=== PATIENT | male | born 1995 | race Caucasian/White ===

== ENCOUNTER → 2023-06-27 10:21 | Outpatient (BNVA) | payer OTHER, SELFPAY | PROVIDERS: Visit Provider Physician Assistant Medical | DX: S93.492A Sprain of other ligament of left ankle, initial encounter (principal); W01.0XXA Fall on same level from slipping, tripping and stumbling without subsequent striking against object, initial encounter | CPT/HCPCS: 99202 ==

== ENCOUNTER → 2023-07-11 10:35 | Outpatient (BNVA) | payer OTHER, SELFPAY | PROVIDERS: Visit Provider Physician Assistant Medical | DX: S93.492A Sprain of other ligament of left ankle, initial encounter (principal); W01.0XXA Fall on same level from slipping, tripping and stumbling without subsequent striking against object, initial encounter | CPT/HCPCS: 99213 ==

== ENCOUNTER → 2023-07-25 11:44 | Outpatient (BNVA) | payer OTHER, SELFPAY | PROVIDERS: Visit Provider Physician Assistant Medical | DX: S93.492D Sprain of other ligament of left ankle, subsequent encounter (principal); W01.0XXD Fall on same level from slipping, tripping and stumbling without subsequent striking against object, subsequent encounter | CPT/HCPCS: 99213 ==

== ENCOUNTER 2023-08-05 08:00 | Outpatient (RCR) | payer OTHER, BC, SELFPAY ==
--- NOTE | 2023-08-02 12:59 | MHC.PT.EP ---
[facility] [place] Office [place] Office [place] Office [address] [phone] F: [phone] F: [phone] F: [phone] F: [phone] Physical Therapy Plan of Care Date of Evaluation: 08/02/23 Date of Surgery: NA Diagnosis: L ankle sprain Assessment: Yves is a 28 year old male who is referred to PT for L ankle sprain . He sustained the sprain about 5 weeks back at work. He twisted his ankle while making a sudden quick turn. He continued to work after the injury however his pain got worse. He went to 2 days after where he was given an aircast for 1 week followed by GAYE wrap. On PT examination he presents with 6/10 pain in L ankle with standing, walking and moving ankle, no TTP, decreased ankle ROM, decreased ankle strength, altered posture, balance and gait. He lives with family. He is independent with ADLS but takes frequent rest breaks as needed, is currently on light duty. He would benefit from skilled PT to address the aforementioned impairments and improve tolerance to functional activities. Frequency and Duration: The patient will be seen 2/week for 5 weeks Short Term Goals: 1. Pt will have 50% decrease in pain which will enable him to stand and walk without GAYE wrap in 2 weeks. 2. Pt will have ankle ROM WNL which will enable him to negotiate stairs without pain in 3 weeks. Fpc Goals: 1. Pt will demonstrate an increase in muscle strength by 1 grade which will enable him to perform all ADLS without rest breaks and pain in 5 weeks. 2. Pt will be independent with HEP and return to PLOF and full duty at work in 5 weeks. Treatment Plan: Modalities to reduce pain, spasms and effusion. Manual therapy to restore motion and function. Therapeutic exercise to improve strength and flexibility. Neuromuscular re-education for posture and balance. Therapeutic activities to return to functional activities of daily living. Electronically signed by: Atiya Seaman PT DPT Please sign and return to therapist. Thank you for your referral.
--- NOTE | 2023-09-16 14:14 | MHC.PT.DC ---
[facility] [place] Office [place] Office [place] Office [address] [phone] F: [phone] F: [phone] F: [phone] F: [phone] Physical Therapy Discharge Report Diagnosis: L ankle sprain Date of Surgery: NA Date of Evaluation: 08/02/23 Date of Discharge: 09/16/23 Treatments to Date: 2 Cancellations to Date: 0 No Shows to Date: Discharge Status: Physician Discontinued Tx Discharge Summary: Yves attended only 2 PT visits and was put on hold by WC. He has not returned to PT in 6 weeks. He is therefore being d/c from PT. Electronically signed by: Atiya Seaman PT DPT Please sign and return to therapist. Thank you for your referral.
== END 2023-09-16 14:14 | disposition home or self-care (01) ==
LOC: HO.PT 08:00
PROVIDERS: PCP Physician Assistant; Visit Provider Physician Assistant Medical
DX: S93.402D Sprain of unspecified ligament of left ankle, subsequent encounter (principal)
CPT/HCPCS: 97110; 97112; 97161

== ENCOUNTER → 2023-08-08 10:34 | Outpatient (BNVA) | payer OTHER, SELFPAY | PROVIDERS: PCP Physician Assistant; Visit Provider Physician Assistant Medical | DX: S93.492D Sprain of other ligament of left ankle, subsequent encounter (principal); W01.0XXD Fall on same level from slipping, tripping and stumbling without subsequent striking against object, subsequent encounter | CPT/HCPCS: 99213 ==

== ENCOUNTER 2023-08-22 14:03 | Outpatient (AMB) | payer OTHER, SELFPAY ==
--- NOTE | 2023-08-22 14:06 | A.OFFVIS_ITS ---
Intake Vital Signs 08/22/23 14:07 Height 5 ft 8 in Weight 218 lb BMI 33.1 Intake Visit Reasons: FC- High Grade Ankle sprain Intake Note: Yves 28 yr old male presents today for his W/C injury for his left ankle sprain from June 25, 2023, while getting off a ladder, he hyper extended his ankle inward causing immediate pain. Seen at work connection, where xrays were taken, states he was told he gas a sprain. He was placed in a air cast and referred to orthopaedic. Currently states he cont's to have swelling, numbness and tingling with prolong standing. He rested his ankle/foot for the last 5 days with very little improvement. Limited ROM in ankle and shooting pain all around ankle. Allergies albuterol Allergy (Intermediate, Verified 08/22/23 14:14) thoat swells surgical tape Allergy (Mild, Uncoded 08/22/23 14:14) hives HPI FC- High Grade Ankle sprain HPI Details 28-year-old male who [facility] of left ankle injury s/p getting off a ladder when he hyperextended his ankle inwards, 06/25/23. He was seen at work connection where x-rays were performed, he was placed in a air cast, and referred to our office. He states he has shooting pain, limited ROM, swelling, numbness and tingling in his ankle with prolonged standing. He had undergone physical therapy which aggravated his pain. He has been resting his ankle for the last 5 days which provided him minimal relief. 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 Mild discomfort along the lateral aspect of the ankle, no deformity along the Achilles tendon, negative Menon?s. No pain along the syndesmosis or anterior tibia. No laxity, NVI. Results Reviewed Results Reviewed: left ankle xrays obtained in the ED on 06/27/23 are negative for acute fracture or dislocation. ankle mortise intact. Assessment & Plan Assessment & Plan (1) Left ankle sprain: Code(s): S93.402A - Sprain of unspecified ligament of left ankle, initial encounter Qualifiers: Encounter type: initial encounter Involved ligament of ankle: anterior talofibular ligament Qualified Code(s): S93.492A - Sprain of other ligament of left ankle, initial encounter (2) Pes planus of both feet: Code(s): M21.41 - Flat foot [pes planus] (acquired), right foot; M21.42 - Flat foot [pes planus] (acquired), left foot Plan He was transitioned to an off the shelf tall boot weight bearing as tolerated. He should wear this while ambulating only, he can remove for rest and hygiene. He will wear this for 2 weeks. He will also begin physical therapy for ROM, gait training, heel quad stretching and proprioceptive training. He will ween from the boot in to a lace up ankle brace and he will remain out of work for the next 2 weeks. He will return to work in 2 weeks with light duty restrictions, working 5 hours a day with no prolonged standing or stair use for 2 weeks and then full duty. He will see me back in 6-8 weeks, sooner if needed. Orders: Orders PT Evaluation and Treatment Today M21.41 - Flat foot [pes planus] (acquired), right foot, M21.42 - Flat foot [pes planus] (acquired), left foot, S93.402A - Sprain of unspecified ligament of left ankle, initial encounter Medications: New [Anti-pronation orthotics] Anti-pronation orthotics 1 ea 0RF pes planus NS M21.41 - Flat foot [pes planus] (acquired), right foot, M21.42 - Flat foot [pes planus] (acquired), left foot, S93.402A - Sprain of unspecified ligament of left ankle, initial encounter Patient Instructions: Scribed for Max An PA-C, by David Hummel medical staff manager, on 08/22/2023 at 2:30 PM EST. IMax PA-C, have personally reviewed and agree with the information entered by the scribe. Coding Level of Care Code New Pt Level 3 (30892) Diagnoses Sprain of anterior talofibular ligament of left ankle, initial encounter S93.492A Encounter type: initial encounter Involved ligament of ankle: anterior talofibular ligament Pes planus of both feet M21.41; M21.42
[2023-08-22 14:07] VITALS: BMI 33.1
== END 2023-08-22 15:09 | disposition home or self-care (01) ==
PROVIDERS: PCP Physician Assistant; Visit Provider Physician Assistant
DX: S93.492A Sprain of other ligament of left ankle, initial encounter (principal); M21.41 Flat foot [pes planus] (acquired), right foot; M21.42 Flat foot [pes planus] (acquired), left foot
CPT/HCPCS: 99203

== ENCOUNTER → 2023-08-22 14:03 | Outpatient (BNVA) | payer OTHER, SELFPAY | PROVIDERS: PCP Physician Assistant; Visit Provider Physician Assistant ==

== ENCOUNTER → 2023-08-24 09:26 | Outpatient (BNVA) | payer OTHER, SELFPAY | PROVIDERS: PCP Physician Assistant; Visit Provider Physician Assistant Medical | DX: S93.492D Sprain of other ligament of left ankle, subsequent encounter (principal); W01.0XXD Fall on same level from slipping, tripping and stumbling without subsequent striking against object, subsequent encounter | CPT/HCPCS: 99213 ==

== ENCOUNTER 2023-08-30 18:41 | Outpatient (REF) | payer OTHER, SELFPAY ==
--- NOTE | ~2023-08-30 | MR_ITS ---
EXAMINATION: MR ANKLE WITHOUT CONTRAST, LEFT CLINICAL INFORMATION: Left ankle pain and swelling. Failed conservative treatment. COMPARISON: None available. TECHNIQUE: Multisequence MR imaging of the left ankle was obtained without contrast on a high-field strength scanner. FINDINGS: BONE AND ARTICULAR CARTILAGE: No marrow edema. No acute fracture or dislocation. No talar osteochondral lesion. Intact articular cartilage. Tiny plantar and dorsal calcaneal spurs. ACHILLES TENDON: Intact. OTHER TENDONS: Intact. LIGAMENTS: There is mild edema along the dorsal/lateral aspect of the calcaneocuboid articulation, likely indicating an acute dorsal calcaneocuboid ligament sprain. The remaining ankle ligaments are intact. JOINT FLUID AND SOFT TISSUES: Trace calcaneocuboid joint effusion with minimal lateral edema in the region of the overlying skin marker. PLANTAR FASCIA: Intact. SINUS TARSI AND TARSAL TUNNEL: Patent. MR/MR ankle LT wo con IMPRESSION: 1. Mild edema along the dorsal/lateral aspect of the calcaneocuboid articulation, likely indicating an acute dorsal calcaneocuboid ligament sprain. Trace calcaneocuboid joint effusion with minimal adjacent soft tissue edema. 2. No acute osseous abnormality. 3. Tiny plantar and dorsal calcaneal spurs.
== END 2023-08-30 18:42 | disposition home or self-care (01) ==
LOC: HO.MRI 18:41
PROVIDERS: PCP Physician Assistant; Visit Provider Internal Medicine
DX: R60.0 Localized edema (principal); M25.572 Pain in left ankle and joints of left foot
CPT/HCPCS: 73721

== ENCOUNTER 2023-09-09 12:40 | Outpatient (AMB) | payer OTHER, SELFPAY ==
--- NOTE | 2023-09-09 12:52 | A.OFFVIS_ITS ---
Intake Vital Signs 09/09/23 12:54 Height 5 ft 8 in Weight 218 lb BMI 33.1 Intake Visit Reasons: Ov- left ankle sprain/MRI Intake Note: Yves is a 28 year old male who presents today for an MRI follow up of his left ankle. MRI done 08/30/23 @ [facility]. This is a W/C injury for his left ankle sprain from June 25, 2023, while getting off a ladder, he hyper extended his ankle inward. Work restrictions that were given at the last appointment - out of work for the next 2 weeks. He will return to work in 2 weeks with light duty restrictions, working 5 hours a day with no prolonged standing or stair use for 2 weeks and then full duty. Patient reports that he is having pain and weakness in the left ankle. He finds that this worsens with activity. He has been wearing the lace up ankle brace given but feels that it is not offering enough support. Allergies albuterol Allergy (Intermediate, Verified 09/09/23 12:54) thoat swells surgical tape Allergy (Mild, Uncoded 09/09/23 12:54) hives HPI Ov- left ankle sprain/MRI HPI Details 28-year-old male who returns to the [facility] today for an MRI follow-up of left ankle. He continues to have pain and weakness in his left ankle which is aggravated with activity and stair use. He has been wearing the lace up ankle brace and had 2 visits but had to postpone because of increased pain. He states he has been working with restriction, but after 2 hours of standing, his symtpoms worsened. He is having a difficult time managing his symptoms and progressing with activities. 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 Mild discomfort along the lateral aspect of the ankle, no deformity along the Achilles tendon, negative Menon?s. No pain along the syndesmosis or anterior tibia. No laxity, NVI. Results Reviewed Results Reviewed: MR ankle LT wo con IMPRESSION: 1. Mild edema along the dorsal/lateral aspect of the calcaneocuboid articulation, likely indicating an acute dorsal calcaneocuboid ligament sprain. Trace calcaneocuboid joint effusion with minimal adjacent soft tissue edema. 2. No acute osseous abnormality. 3. Tiny plantar and dorsal calcaneal spurs. Assessment & Plan Assessment & Plan (1) Left ankle sprain: Code(s): S93.402A - Sprain of unspecified ligament of left ankle, initial encounter Qualifiers: Encounter type: initial encounter Involved ligament of ankle: anterior talofibular ligament Qualified Code(s): S93.492A - Sprain of other ligament of left ankle, initial encounter (2) Pes planus of both feet: Code(s): M21.41 - Flat foot [pes planus] (acquired), right foot; M21.42 - Flat foot [pes planus] (acquired), left foot Plan We had a lengthy discussion about the MRI and his work status. Because he continues to have difficulty with prolonged standing especially after attending physical therapy, the decision has been made to keep him out of work until he has completed approximately 4-6 weeks of physical therapy where he can regain hi s strengthening and ability to stand long periods of time. He was given the contact information for physical therapy. He will make this appointment and see me back in 6 weeks for follow-up. Patient Instructions: Scribed for Max An PA-C, by David Hummel medical cost consultant, on 09/09/2023 at 1:00 PM EST. IMax PA-C, have personally reviewed and agree with the information entered by the scribe. Coding Level of Care Code Est Pt Level 3 (13436) Diagnoses Sprain of anterior talofibular ligament of left ankle, initial encounter S93.492A Encounter type: initial encounter Involved ligament of ankle: anterior talofibular ligament Pes planus of both feet M21.41; M21.42
[2023-09-09 12:54] VITALS: BMI 33.1
== END 2023-09-09 15:26 | disposition home or self-care (01) ==
PROVIDERS: PCP Physician Assistant; Visit Provider Physician Assistant
DX: S93.492A Sprain of other ligament of left ankle, initial encounter (principal); M21.41 Flat foot [pes planus] (acquired), right foot; M21.42 Flat foot [pes planus] (acquired), left foot
CPT/HCPCS: 99213

== ENCOUNTER → 2023-09-09 12:40 | Outpatient (BNVA) | payer OTHER, SELFPAY | PROVIDERS: PCP Physician Assistant; Visit Provider Physician Assistant | DX: S93.402A Sprain of unspecified ligament of left ankle, initial encounter (principal); M21.41 Flat foot [pes planus] (acquired), right foot; M21.42 Flat foot [pes planus] (acquired), left foot | CPT/HCPCS: 99212 ==

== ENCOUNTER 2023-10-24 11:58 | Outpatient (AMB) | payer OTHER, SELFPAY ==
--- NOTE | 2023-10-24 12:15 | A.OFFVIS_ITS ---
Intake Intake Visit Reasons: OV - Left Ankle Follow Up Intake Note: Yves is a 28 year old male who presents today for a follow up of his left ankle sprain DOI: June 25, 2023. Last visit he was to attend PT. He reports that he is feeling some relief. Has pain with prolonged standing. He remains out of work and would like to discuss RTW Allergies albuterol Allergy (Intermediate, Verified 10/24/23 12:17) thoat swells surgical tape Allergy (Mild, Uncoded 10/24/23 12:17) hives HPI OV - Left Ankle Follow Up HPI Details 28-year-old male who returns to the [facility] today for a follow-up of left ankle pain, 06/25/23. He states he has improvement in his symptoms but he does c/o pain with prolonged standing. He continues to work on physical therapy with benefits. He is currently out of work and would like to discuss his RTW status. 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 No discomfort along the lateral aspect of the ankle, no deformity along the Achilles tendon, negative Menon?s. No pain along the syndesmosis or anterior tibia. No laxity, NVI. Assessment & Plan Assessment & Plan (1) Left ankle sprain: Code(s): S93.402A - Sprain of unspecified ligament of left ankle, initial encounter Qualifiers: Encounter type: initial encounter Involved ligament of ankle: anterior talofibular ligament Qualified Code(s): S93.492A - Sprain of other ligament of left ankle, initial encounter (2) Pes planus of both feet: Code(s): M21.41 - Flat foot [pes planus] (acquired), right foot; M21.42 - Flat foot [pes planus] (acquired), left foot Plan He will continue working with physical therapy and increasing activity as tolerated. He will return to work on October 25 working 8 hours a day with no more than 40 hours a week until the first week of year, at that time he will resume all activities without restrictions. He will see me back as needed if symptoms arise. Patient Instructions: Scribed for Max An PA-C, by David Hummel medical legal investigator, on 10/24/2023 at 12:30 PM Max ORDONEZ PA-C, have personally reviewed and agree with the information entered by the scribe. Coding Level of Care Code Est Pt Level 3 (32369) Diagnoses Sprain of anterior talofibular ligament of left ankle, initial encounter S93.492A Encounter type: initial encounter Involved ligament of ankle: anterior talofibular ligament Pes planus of both feet M21.41; M21.42
== END 2023-10-24 12:51 | disposition home or self-care (01) ==
PROVIDERS: PCP Physician Assistant; Visit Provider Physician Assistant
DX: S93.492A Sprain of other ligament of left ankle, initial encounter (principal); M21.41 Flat foot [pes planus] (acquired), right foot; M21.42 Flat foot [pes planus] (acquired), left foot
CPT/HCPCS: 99213

== ENCOUNTER → 2023-10-24 11:58 | Outpatient (BNVA) | payer OTHER, SELFPAY | PROVIDERS: PCP Physician Assistant; Visit Provider Physician Assistant | DX: S93.492A Sprain of other ligament of left ankle, initial encounter (principal); M21.41 Flat foot [pes planus] (acquired), right foot; M21.42 Flat foot [pes planus] (acquired), left foot | CPT/HCPCS: 99212 ==

== ENCOUNTER 2023-10-31 08:00 | Outpatient (RCR) | payer OTHER, BC, SELFPAY ==
--- NOTE | 2023-09-20 17:47 | MHC.PT.EP ---
[facility] [place] Office [place] Office [place] Office [address] [phone] F: [phone] F: [phone] F: [phone] F: [phone] Physical Therapy Plan of Care Date of Evaluation: 09/20/23 Date of Surgery: Diagnosis: L ankle Sprain. Assessment: PT is a 28 year old male who is referred to PT for L ankle sprain which he reports he sustained at work in July reporting he twisted his ankle at work resulting in decreased tolerance for standing, walking, negotiating stairs and performing heavy HH and work tasks secondary to decreased L ankle ROM and strength, decreased balance, mild lateral L ankle effusion, and pain. He is deemed an appropriate and motivated patient to receive skilled PT services in order to address his physical impairments in order to improve his functional ability. Frequency and Duration: The patient will be seen 2 x / wk x 5 wks. Short Term Goals: Pt will improve his baseline pain by at least 50%; initial 6-09/06. Pt will have ankle ROM WNL which will enable him to negotiate stairs without pain in 3 weeks. Nursing Home Goals: Pt will improve L ankle MMT strength by at least 1 MMT grade. Pt will be independent with HEP and return to PLOF and full duty at work in 5 weeks. Improve LEFI outcome measure by at least 13 points. Treatment Plan: Modalities to reduce pain, spasms and effusion. Manual therapy to restore motion and function. Therapeutic exercise to improve strength and flexibility. Neuromuscular re-education for posture and balance. Therapeutic activities to return to functional activities of daily living. Electronically signed by: Denilson Montgomery PT. Please sign and return to therapist. Thank you for your referral.
--- NOTE | 2023-12-05 07:37 | MHC.PT.DC ---
[facility] [place] Office [place] Office [place] Office [address] [phone] F: [phone] F: [phone] F: [phone] F: [phone] Physical Therapy Discharge Report Diagnosis: L ankle Sprain. Date of Surgery: Date of Evaluation: 09/20/23 Date of Discharge: 10/31/23 Treatments to Date: 11 Cancellations to Date: No Shows to Date: Discharge Status: Achieved Goals Improved Function Independent with HEP Discharge Summary: Yves has been an active participant in his therapy in and out of the clinic. He is DCd as he has met his therapeutic goals, is I with his home program and is improved of his function though persists with mild soreness at the end of the day. Electronically signed by: Denilson Montgomery PT. Please sign and return to therapist. Thank you for your referral.
== END 2023-12-05 07:37 | disposition home or self-care (01) ==
LOC: HO.PT 08:00
PROVIDERS: PCP Physician Assistant; Visit Provider Physician Assistant
DX: S93.402A Sprain of unspecified ligament of left ankle, initial encounter (principal); M21.41 Flat foot [pes planus] (acquired), right foot; M21.42 Flat foot [pes planus] (acquired), left foot
CPT/HCPCS: 97110; 97112; 97140; 97161; 97164; 97530